=== PATIENT | female | born 1985 | race Caucasian/White ===

== ENCOUNTER 2018-03-25 15:06 | Emergency (ER) | payer OTHER ==
--- NOTE | 2018-03-25 15:23 | ED Physician Documentation ---
Lower Extremity Injury - HPI Stated Complaint: "rolled ankle" Chief Complaint: Lower Extremity Injury Additional Information: Patient presents to ED after walking down a hill and "rolling her left ankle" at work today. She complains of left lateral ankle pain. Onset: hours (1) Where: work Context: twist Associated Symptoms:: swelling. denies: tingling Modifying Factors:: pain on movement - ROS CONST: denies: fever CVS/RESP: denies: chest pain MS/SKIN/LYMPH: foot swelling, ankle swelling NEURO: denies: headache - PAST HX Past History: none Allergies/Adverse Reactions: Allergies Allergy/AdvReac Type Severity Reaction Status Date / Time No Known Allergies Allergy Verified 03/25/18 15:21 Home Medications: Ambulatory Orders Medication Instructions Recorded Glipizide [Glucotrol XL] 1 tab PO DAILY 03/06/14 Estradiol 03/25/18 - SOCIAL HX Smoking History: non-smoker Alcohol Use: none Drug Use: none - FAMILY HX Family History: none - VITAL SIGNS Vital Signs: Vital Signs Temp Pulse Resp BP Pulse Ox 96.7 F L 71 14 142/85 100 03/25/18 15:15 03/25/18 15:15 03/25/18 15:15 03/25/18 15:15 03/25/18 15:15 - REVIEWED ASSESSMENTS Nursing Assessment Reviewed: Yes Vitals Reviewed: Yes ED Results Lab/Radiology - Radiology Radiology Impressions: Examination: Plain film left foot History: 32/F PAIN ON LATERAL SIDE OF LEFT FOOT/ANKLE (Hx) / ITS.REASON pain (DICOM Hx) / ITS.REASON pain (Pt comments) Findings: 3 views of the left foot demonstrates a cortical irregularity involving the anterior calcaneus. No other fracture or dislocation. Small posterior calcaneal spur. No soft tissue swelling. No joint effusion. Impression: Cortical irregularity anterior calcaneus - recommend CT ankle to better evaluate cortical margins. Electronically signed on Mar 25, 2018 3:50:41 PM [employer]IVE OUT NANNY by: Preston Fong The wall Examination: Plain film left ankle History: 32/F PAIN ON LATERAL SIDE OF LEFT FOOT/ANKLE (Hx) / ITS.REASON pain (DICOM Hx) / ITS.REASON pain (Pt comments) Findings: 3 views of the left ankle demonstrates normal cortical margins. No fracture or dislocation. Talar dome is intact. Small posterior calcaneal spur. No soft tissue swelling. No joint effusion. Impression: No acute osseous process. Electronically signed on Mar 25, 2018 3:51:41 PM [employer] NANNY by: Preston Fong CT of the left ankle Clinical history: Pain. Abnormal plain film imaging of the calcaneus. Technique: CT of the left ankle is performed in contiguous axial slices with sagittal and coronal reconstructions. Findings: Tibia and fibula are intact and the ankle mortise is anatomic. There is minimal ossification adjacent to the calcaneus anterolaterally that may be related to an old injury. This does not appear to represent acute fracture. Bony structures are otherwise intact. Impression: 1. Ossification adjacent to the calcaneus likely related to old injury. This does not have the appearance of an acute fracture. 2. Ankle mortise is anatomic. 3. No other fracture identified. Electronically signed on Mar 25, 2018 4:54:28 PM [employer] [facility]ANNY by: Aime Doss - Orders Orders: ED Orders Category Date Time Status ANKLE 3 VIEWS OR MORE [RAD] Stat Exams 03/25/[address] LEG W/O CONTRAST Stat Exams 03/25/18 Taken FOOT 3 VIEWS OR MORE [RAD] Stat Exams 03/25/18 Completed Ibuprofen [Advil] Med 03/25/18 15:59 Discontinued 600 mg PO NOW ONE Lower Extremities Injury Phy - Physical Exam General Appearance: no acute distress, alert Hips: left hip: normal inspection Legs: left: normal inspection Knees: left: normal inspection Ankle: left: soft tissue tenderness, swelling (lateral malleoli) Foot: left foot: normal inspection Gait: limited by pain Neuro/Vascular/Tendon: no vascular compromise, motor nml Head/ENT: nml inspection Neck/Back: nml inspection Resp/CVS: chest non-tender, breath sounds nml, heart sounds nml Abdomen: non-tender Discharge Clincal Impression: Ankle strain Qualifiers: Encounter type: initial encounter Laterality: left Qualified Code(s): S96.912A - Strain of unspecified muscle and tendon at ankle and foot level, left foot, in itial encounter Referrals: Primary Doctor,No [Primary Care Provider] - 2 Days Additional Instructions: 1. Tylenol and/or ibuprofen as need for pain/swelling. These may be taken together for better pain control 2. Ice to affected area as needed 3. Follow up with PCP within 1 week 4. Return to the ED for new or worsening symptoms. Condition: Stable Disposition: 01 HOME, SELF-CARE Decision to Admit: NO Date of Decison to Admit: 03/25/18 Decision Time: 17:00
--- NOTE | 2018-03-25 15:53 | Diagnostic Imaging Report ---
TAMAR RACHEL [facility] [place] [facility] [address] [facility] [address] [place] [address]. [id number] Report Submission Date: Mar 25, 2018 3:50:41 PM CHICK GRADER Patient Study Name: DORA SHEPPARD Date: Mar 25, 2018 3:23:37 PM CHICK GRADER Modality Type: DX Gender: F Description: LOWER EXTREMITY : 81 Institution: [facility] [place] [facility] Physician: TAMAR RACHEL Examination: Plain film left foot History: 32/F PAIN ON LATERAL SIDE OF LEFT FOOT/ANKLE (Hx) / ITS.REASON pain (DICOM Hx) / ITS.REASON pain (Pt comments) Findings: 3 views of the left foot demonstrates a cortical irregularity involving the anterior calcaneus. No other fracture or dislocation. Small posterior calcaneal spur. No soft tissue swelling. No joint effusion. Impression: Cortical irregularity anterior calcaneus - recommend CT ankle to better evaluate cortical margins. Electronically signed on Mar 25, 2018 3:50:41 PM CHICK GRADER by: Preston ENRIQUE
--- NOTE | 2018-03-25 15:53 | Diagnostic Imaging Report ---
TAMAR RACHEL [facility] [address] [facility] [address] [place] [address]. [id number] Report Submission Date: Mar 25, 2018 3:51:41 PM RESIDENTIAL SERVICE TECHNICIAN Patient Study Name: DORA SHEPPARD Date: Mar 25, 2018 3:19:26 PM RESIDENTIAL SERVICE TECHNICIAN Modality Type: DX Gender: F Description: LOWER EXTREMITY : 81 Institution: [facility] Physician: TAMAR RACHEL The wall Examination: Plain film left ankle History: 32/F PAIN ON LATERAL SIDE OF LEFT FOOT/ANKLE (Hx) / ITS.REASON pain (DICOM Hx) / ITS.REASON pain (Pt comments) Findings: 3 views of the left ankle demonstrates normal cortical margins. No fracture or dislocation. Talar dome is intact. Small posterior calcaneal spur. No soft tissue swelling. No joint effusion. Impression: No acute osseous process. Electronically signed on Mar 25, 2018 3:51:41 PM RESIDENTIAL SERVICE TECHNICIAN by: Preston ENRIQUE
[2018-03-25] MEDS ORDERED: IBUPROFEN 200 MG TABLET PO ONE (15:59)
--- NOTE | 2018-03-25 16:57 | Diagnostic Imaging Report ---
TAMAR RACHEL [facility] [address] [facility] [address] [place], [place]. [address] Report Submission Date: Mar 25, 2018 4:54:28 PM RADIOLOGY CLERK Patient Study Name: DORA SHEPPARD Date: Mar 25, 2018 4:06:30 PM RADIOLOGY CLERK Modality Type: CT\SR Gender: F Description: CT LEG W/O CONTRAST : 81 Institution: [facility] Physician: TAMAR RACHEL CT of the left ankle Clinical history: Pain. Abnormal plain film imaging of the calcaneus. Technique: CT of the left ankle is performed in contiguous axial slices with sagittal and coronal reconstructions. Findings: Tibia and fibula are intact and the ankle mortise is anatomic. There is minimal ossification adjacent to the calcaneus anterolaterally that may be related to an old injury. This does not appear to represent acute fracture. Bony structures are otherwise intact. Impression: 1. Ossification adjacent to the calcaneus likely related to old injury. This does not have the appearance of an acute fracture. 2. Ankle mortise is anatomic. 3. No other fracture identified. Electronically signed on Mar 25, 2018 4:54:28 PM RADIOLOGY CLERK by: Aime ENRIQUE
[2018-03-25 17:11] VITALS: BP 136/84
== END 2018-03-25 17:06 | disposition home or self-care (01) ==
LOC: ED 15:06
DX: S96.912A Strain of unspecified muscle and tendon at ankle and foot level, left foot, initial encounter (principal); X58.XXXA Exposure to other specified factors, initial encounter; Y93.01 Activity, walking, marching and hiking; Y92.89 Other specified places as the place of occurrence of the external cause; Y99.0 Civilian activity done for income or pay
CPT/HCPCS: 29540; 73610; 73630; 73700; 99283; 99285

== ENCOUNTER 2018-04-24 08:12 | Outpatient (CLI) | payer BC ==
[2018-04-24 09:16] LABS: eGFR (Non-African) > 60
== END 2018-04-24 08:30 ==
LOC: LAB 08:12
PROVIDERS: ATTEND Nurse Practitioner Family
DX: E11.8 Type 2 diabetes mellitus with unspecified complications (principal); R53.83 Other fatigue
CPT/HCPCS: 36415; 80053; 80061; 82043; 83036; 84439; 84443; 84481

== ENCOUNTER 2018-05-30 09:56 | Outpatient (CLI) | payer BC, OTHER | END 2018-05-30 09:58 | LOC: OUT 09:56 | PROVIDERS: ATTEND Nurse Practitioner Family | DX: Z71.3 Dietary counseling and surveillance (principal); E11.9 Type 2 diabetes mellitus without complications; Z68.39 Body mass index [BMI] 39.0-39.9, adult | CPT/HCPCS: 97802 ==

== ENCOUNTER 2018-11-27 09:38 | Outpatient (CLI) | payer BC ==
[2018-11-27 10:02] LABS: A1C 5.8 % (<5.7)
[2018-11-27 10:05] LABS: eGFR (Non-African) > 60
== END 2018-11-27 09:40 ==
LOC: LAB 09:38
PROVIDERS: ATTEND Family Medicine
DX: E11.9 Type 2 diabetes mellitus without complications (principal)
CPT/HCPCS: 36415; 80053; 83036